=== PATIENT | male | born 2000 | race Hispanic/Latino ===

== ENCOUNTER 2019-10-25 13:22 | Emergency (ER) | payer OTHER ==
[2019-10-25] MEDS ORDERED: Adacel (T-DAP) 0.5 ML SYRINGE ONE (13:33)
== END 2019-10-25 13:50 | disposition home or self-care (01) ==
LOC: NAV ERS 13:22
DX: S61.211A Laceration without foreign body of left index finger without damage to nail, initial encounter (principal); F17.220 Nicotine dependence, chewing tobacco, uncomplicated; Z23 Encounter for immunization; W26.9XXA Contact with unspecified sharp object(s), initial encounter
CPT/HCPCS: 12001; 90471; 90715; 99001

== ENCOUNTER 2023-10-30 11:23 | Emergency (ER) | payer BC, OTHER ==
[2023-10-30] MEDS ORDERED: Ibuprofen 800 MG TAB ONE (11:59)
== END 2023-10-30 12:03 | disposition home or self-care (01) ==
LOC: NAV ERS 11:23
DX: S02.5XXA Fracture of tooth (traumatic), initial encounter for closed fracture (principal); S01.511A Laceration without foreign body of lip, initial encounter; Z87.891 Personal history of nicotine dependence; W51.XXXA Accidental striking against or bumped into by another person, initial encounter
CPT/HCPCS: 99282